=== PATIENT | female | born 1935 | race Caucasian/White ===

== ENCOUNTER 2020-09-05 07:35 | Inpatient (IN) | payer OTHER ==
[~2020-09-05] VITALS: Ht 157.5 cm; Wt 60.8 kg
[2020-09-05] MEDS ORDERED: SODIUM CHLORIDE 0.9% 1,000 ML IV ONE (08:00)
[2020-09-05 08:38] LABS: Basophils # (auto) 0 10 ^3/uL (0-0.2); Basophils % (auto) 0.6 % (0.0-2.0); Eosinophils # (auto) 0.1 10 ^3/uL (0-0.8); Eosinophils % (auto) 1.4 % (0.0-7.0); Hematocrit 45.6 % (36.0-46.0); Hemoglobin 15.2 g/dL (12.2-16.2); Lymphocytes # (auto) 0.6 10 ^3/uL (0.4-5.4); Lymphocytes % (auto) 11.6 % (10.0-50.0); Mean Corpuscular Hemoglobin 32.2 pg (28.0-32.0); Mean Corpuscular Hgb Conc. 33.3 g/dL (32.0-36.0); Mean Corpuscular Volume 96.5 fL (80.0-100.0); Monocytes # (auto) 0.3 10 ^3/uL (0-1.3); Monocytes % (auto) 6.8 % (0.0-12.0); Neutrophils # (auto) 3.9 10 ^3/uL (1.6-8.6); Neutrophils % (auto) 79.6 % (37.0-80.0); Platelet Count (auto) 201 10^3/uL (140-450); Red Blood Cells 4.73 10^6/uL (4.0-5.20); Red Cell Distribution Width 13.3 % (11.8-14.3); White Blood Cell 4.9 10^3/uL (4.4-10.8)
[2020-09-05 08:54] LABS: INR 1.04 (0.9-1.15); Partial Thromboplastin Time 23.7 sec (23.0-31.2)
[2020-09-05 08:56] LABS: Albumin 3.2 g/dL (3.4-5.0); Anion Gap 4 (5-15); Blood Urea Nitrogen 15 mg/dL (7-18); Calcium 8.8 mg/dL (8.5-10.1); Carbon Dioxide 26 mmol/L (21-32); Chloride 105 mmol/L (98-107); Glucose 109 mg/dL (74-106); Potassium 4.1 mmol/L (3.5-5.1); Sodium 135 mmol/L (136-145)
[2020-09-05 09:01] LABS: Alanine Aminotransferase 20 U/L (13-56); Alkaline Phosphatase 108 U/L (45-117); Aspartate Aminotransferase 23 U/L (15-37); BUN/Creatinine Ratio 19.2; Bilirubin, Total 0.4 mg/dL (0.2-1.0); GFR African American 90 mL/min; GFR Non-African American 74 mL/min; Total Protein 6.3 g/dL (6.4-8.2)
[2020-09-05 09:40] LABS: Urine Bacteria NONE SEEN /hpf (None Seen); Urine Blood Negative /uL (Negative); Urine Mucus FEW (None Seen); Urine Specific Gravity 1.015 (1.001-1.035); Urine WBC 2 /hpf (0 - 5)
[2020-09-05] MEDS ORDERED: cefTRIAXone 1GM/50ML D5W 50 ML IV ONE (11:15)
[2020-09-05] MEDS ORDERED: ACETAMINOPHEN 500 MG TAB PO PRN (12:30)
[2020-09-05] MEDS ORDERED: NITROGLYCERIN 0.4 MG SL TAB SL PRN (12:30)
[2020-09-05] MEDS ORDERED: HYDROcodone-ACET 5/325MG TAB PO PRN (12:30)
[2020-09-05] MEDS ORDERED: ONDANSETRON HCL 4 MG/2 ML VIAL IV PRN (12:30)
[2020-09-05] MEDS ORDERED: MORPHINE SULF INJ 2 MG/ML SYRINGE 1ML IV PRN ×2 (12:30)
[2020-09-05] MEDS: SODIUM CHLORIDE 0.9% 1,000 ML IV SCH (13:08)
[2020-09-05] MEDS ORDERED: CITA-73 PO (13:34)
[2020-09-05] MEDS ORDERED: MULT-1018 PO (13:34)
[2020-09-05] MEDS ORDERED: ALBUAER3 IN (13:34)
[2020-09-05] MEDS ORDERED: MONT10TA34 PO (13:34)
[2020-09-05] MEDS ORDERED: LOSA-39 PO (13:34)
--- NOTE | 2020-09-05 15:41 | NUR ---
Telemetry admit from [facility] admitted to Telemetry unit after SBAR received. Patient oriented to KENIA OSBORNE RN primary RN, unit, room, bed, and unit policies regarding patient care and visiting hours. Patient now on continuous telemetry monitoring, tele box # 75 and telemetry reading on arrival to unit is SB. Patient weighed by bedscale and encouraged to call if they need something. All questions and concerns addressed, patient verbalized understanding.
[2020-09-05 17:00] VITALS: BP 142/82
[2020-09-05] MEDS ORDERED: INFLUENZA QUAD 2020-2021 0.5 ML SYRG IM ONE (17:45)
[2020-09-05] MEDS ORDERED: PNEUMOCOCCAL VACC POLYS 25 MCG/0.5 ML VIAL IM ONE (17:45)
[2020-09-05] MEDS ORDERED: LORazepam 2MG/ML-1ML VIAL IV PRN (20:45)
[2020-09-05 22:00] VITALS: BP 138/73
[2020-09-05] MEDS: ATORVASTATIN 20 MG TAB PO SCH (22:06)
[2020-09-06] MEDS: SODIUM CHLORIDE 0.9% 1,000 ML IV SCH ×2 (01:50→14:45)
[2020-09-06 05:00] VITALS: BP 149/85
[2020-09-06 05:38] LABS: Basophils # (auto) 0 10 ^3/uL (0-0.2); Basophils % (auto) 0.5 % (0.0-2.0); Eosinophils # (auto) 0.1 10 ^3/uL (0-0.8); Eosinophils % (auto) 1.7 % (0.0-7.0); Hematocrit 45.4 % (36.0-46.0); Hemoglobin 15.6 g/dL (12.2-16.2); Lymphocytes % (auto) 18.9 % (10.0-50.0); Mean Corpuscular Hemoglobin 33.1 pg (28.0-32.0); Mean Corpuscular Hgb Conc. 34.4 g/dL (32.0-36.0); Mean Corpuscular Volume 96.1 fL (80.0-100.0); Monocytes # (auto) 0.6 10 ^3/uL (0-1.3); Monocytes % (auto) 10.5 % (0.0-12.0); Neutrophils # (auto) 3.7 10 ^3/uL (1.6-8.6); Neutrophils % (auto) 68.4 % (37.0-80.0); Nucleated Red Blood Cells % 0.3 %; Platelet Count (auto) 197 10^3/uL (140-450); Red Blood Cells 4.73 10^6/uL (4.0-5.20); Red Cell Distribution Width 13.7 % (11.8-14.3); White Blood Cell 5.4 10^3/uL (4.4-10.8)
[2020-09-06 06:01] LABS: BUN/Creatinine Ratio 18.1; Bilirubin, Total 0.6 mg/dL (0.2-1.0); Potassium 4.1 mmol/L (3.5-5.1)
--- NOTE | 2020-09-06 08:00 | NUR ---
RECEIVED PATIENT ALERT AND ORIENTED X4, NOT IN DISTRESS, WHEEZING SOUNDS IN BILATERAL LUNG LOBES, RR=18 SAT=96%, DEEP BREATHING AND COUGHING ENCOURAGED, VERBALIZED UNDERSTANDING, SR R=64 ON TELE MONITOR, ABDOMEN SOFT AND ROUND WITH ACTIVE BOWL SOUNDS, LAST BM=UNKNOWN TIME AND DAY REPORTED, DENIED CONSTIPATION, TOLERATING BSC WITH ASSISTANCE, SKIN INTACT WARM TO TOUCH, RADIAL AND PEDAL PULSES PALPABLE, RESTING ON BED, HEAD OF BED ELEVATED, BED ON LOW POSITION, RAILS UP X2, CALL LIGHT ON REACH, PENDING MRI AND EEG ORDERED, WILL CONTINUE MONITORING.
[2020-09-06 09:00] VITALS: BP 131/74
[2020-09-06] MEDS: ASPirin-EC 81 mg tab PO SCH (10:45)
[2020-09-06] MEDS: FAMOTIDINE 20 MG TAB PO SCH (10:45)
[2020-09-06] MEDS: cefTRIAXone 1GM/50ML D5W 50 ML IV SCH (10:45)
--- NOTE | 2020-09-06 12:30 | NUR ---
WENT ON WC TO MRI AND CAME BACK, TOLERATED WELL, SITTING ON BED AND EATING LUNCH, WILL CONTINUE MONITORING.
--- NOTE | 2020-09-06 14:52 | NUR ---
EEG-ELECTROENCEPHALOGRAM COMPLETED AT BEDSIDE @ 1418.
[2020-09-06 17:00] VITALS: BP 149/86
--- NOTE | 2020-09-06 19:21 | NUR ---
RESTING ON BED, NOT IN DISTRESS, HEAD OF BED ELEVATED, BED ON LOW POSITION, RAILS UP X2, CALL LIGHT ON REACH, REPORT WAS GIVEN TO THE VOCATIONAL EDUCATION TEACHER RN.
[2020-09-06 21:00] VITALS: BP 144/73
[2020-09-06] MEDS: ATORVASTATIN 20 MG TAB PO SCH (21:43)
[2020-09-07] MEDS: SODIUM CHLORIDE 0.9% 1,000 ML IV SCH ×2 (04:06→18:16)
[2020-09-07 05:00] VITALS: BP 153/96
[2020-09-07 09:00] VITALS: BP 150/80
[2020-09-07] MEDS: cefTRIAXone 1GM/50ML D5W 50 ML IV SCH (09:19)
[2020-09-07] MEDS: FAMOTIDINE 20 MG TAB PO SCH (09:19)
[2020-09-07] MEDS: ASPirin-EC 81 mg tab PO SCH (09:19)
--- NOTE | 2020-09-07 11:23 | NUR ---
SPOKE TO DR MARIANELA SPARKS: BIOPSY - STATES BIOPSY CAN BE DONE TODAY. [place] AND PATIENT'S RN NOTIFIED. MINIATURE SET BUILDER WILL OBTAIN CONSENT FROM PATIENT.
--- NOTE | 2020-09-07 12:16 | NUR ---
RADIOLOGY CALLED, SPOKE TO JR, SHE SAID DR. PERALTA PATHOLOGIST CANNOT DO THE PROCEDURE TODAY AND TOMORROW, HER SCHEDULE FOR NEEDLE BIOPSY IS ON WEDNESDAYS, DR. BARRIOS MADE AWARE AND HE SAID HE WILL TAKE CARE OF IT.
[2020-09-07 12:45] VITALS: BP 151/82
[2020-09-07 16:40] VITALS: BP 142/75
[2020-09-07 16:41] VITALS: BP 127/59
--- NOTE | 2020-09-07 19:20 | NUR ---
Opening Shift Note Assumed care of patient after receiving report. Patient is awake and alert with no S/S of distress/SOB or pain. Call light within reach, bed in lowest locked position x2 side rails up. Instructed on POC and to call for assist PRN, will continue to monitor for changes Q1hr and PRN.
[2020-09-07] MEDS: ATORVASTATIN 20 MG TAB PO SCH (21:30)
[2020-09-07 22:00] VITALS: BP 155/85
--- NOTE | 2020-09-07 22:02 | NUR ---
Hospitalist paged Hospitalist paged at this time regarding patients elevated BP 155/85, HR 62. RN reassessed BP 151/85, HR 68. Patient takes Losartan 100 mg daily at home, medication not continued during hospitalization. Awaiting call back.
--- NOTE | 2020-09-07 22:55 | NUR ---
Hospitalist called back Received call back from hospitalist RIVERA Piper. Informed Veronique of elevated BP and no antihypertensive medications. Per hospitalist, continue home medication Losartan 100 mg daily.
[2020-09-08 05:00] VITALS: BP 152/81
[2020-09-08] MEDS: SODIUM CHLORIDE 0.9% 1,000 ML IV SCH (07:10)
--- NOTE | 2020-09-08 07:30 | NUR ---
Opening Shift Note Assumed care of patient, awake and alert. No S/S of distress/SOB or pain. Instructed on POC and to call for assist PRN, will continue to monitor for changes Q1hr and PRN.
[2020-09-08 09:00] VITALS: BP 153/88
[2020-09-08] MEDS: ASPirin-EC 81 mg tab PO SCH (09:49)
[2020-09-08] MEDS: FAMOTIDINE 20 MG TAB PO SCH (09:49)
[2020-09-08] MEDS: cefTRIAXone 1GM/50ML D5W 50 ML IV SCH (09:50)
[2020-09-08] MEDS ORDERED: LOSARTAN POTASSIUM 50 MG TAB PO SCH (10:00)
--- NOTE | 2020-09-08 11:20 | NUR ---
at bedside discussing POC with Pt. Dr. Salcedo asked that Pt. referred to Primary for biopsy after discharge date; today.
--- NOTE | 2020-09-08 11:40 | NUR ---
Nutrition Assessment Note please see attached link for complete assessment [employer] needs BW 60 [id number] kcals (25-30 kcal/kgBW), Est Protein needs: 60-72 gms/day (1.0-1.2 gm/kgBW). Will continue to monitor and reassess prn. Addendum: 09/08/20 at [address] Amended: Links added.
[2020-09-08 13:30] VITALS: BP 150/84
[2020-09-08 18:30] VITALS: BP 153/88
--- NOTE | 2020-09-08 19:29 | NUR ---
[facility]
--- NOTE | 2020-09-08 20:16 | NUR ---
discharge PATIENT LEFT AT 2011 VIA W/C ACCOMPANIED BY NURSE ELIE . IV REMOVED WITH CATHETER INTACT. TELE BOX RETURNED
== END 2020-09-08 20:12 | disposition home or self-care (01) | DRG 312 ==
LOC: ER 07:35 → EDBD 07:35 → TELE 07:36 → TELE-WESTW 15:51
PROVIDERS: ADMIT Nurse Practitioner Acute Care; ATTEND Family Medicine
DX: R55 Syncope and collapse (principal); N39.0 Urinary tract infection, site not specified; J44.9 Chronic obstructive pulmonary disease, unspecified; R00.1 Bradycardia, unspecified; I10 Essential (primary) hypertension; Z82.3 Family history of stroke; E04.1 Nontoxic single thyroid nodule; H81.09 Meniere's disease, unspecified ear; R00.0 Tachycardia, unspecified
CPT/HCPCS: 36415; 70450; 70551; 71045; 76536; 80053; 80061; 81001; 84443; 84484; 85025; 85610; 85730; 87086; 93306; 93886; 95819; 96361; 96365; G0378; J0696